=== PATIENT | female | born 1940 | race Caucasian/White ===

== ENCOUNTER 2024-07-21 14:55 | Emergency (ER) | payer MEDICARE, SELFPAY ==
--- NOTE | ~2024-07-21 | CT_ITS ---
CLINICAL INDICATION: Umbilical hernia with nausea and COMPARISON: 01/19/2015X TECHNIQUE: Multiple contiguous axial images of the abdomen and pelvis were performed following the ad ministration of with 100 mL Omnipaque-350 intravenous contrast The dose-length product (DLP) was 1462.31 mGy-cm. Automated exposure control and iterative reconstruction technique were employed. FINDINGS/OBSERVATIONS: Visualized lower thorax: The bilateral lung bases are clear. The heart is of normal size, without pericardial effusion. Small hiatal hernia is present. Liver: The liver demonstrates homogeneous enhancement and is not enlarged measuring 15 cm in longitudinal di mension. Gallbladder and biliary system: The gallbladder is only minimally distended and contains a single stone, and is otherwise unremarkabl e. Pancreas: The pancreas enhances homogeneously without ductal dilatation. Spleen: The spleen enhances homogeneously and is not enlarged measuring 10 cm in longitudinal dimension. Kidneys: Innumerable rounded foci of fluid attenuation identified within the bilateral kidneys, incre ased from 2015 examination. The remainder of the bilateral kidneys otherwise enhance symmetrically without hydronephrosis or lincoln l calculi. Adrenal glands: Unremarkable. Gastrointestinal tract: Colonic diverticulosis without surrounding inflammatory change. Fecal stasis within the colon. Appendix: The appendix is not definitively visualized. However, no pericecal inflammatory change is identified suggest the presence of acute appendicitis. Vasculature: Unremarkable. Lymph nodes: No pathologically enlarged or morphologically suspicious lymph nodes within the retroperitoneum or at the root of the mesentery. Pelvic structures: The bladder is only minimally distended, and otherwise unremarkable. The uterus is anteverted and anteflexed. Body wall and musculoskeletal: A fat, omental, and fluid containing umbilical hernia is identified, extending caudally without signi ficant enlargement since 2015 examination. Trace surrounding inflammatory change is identified. The hernia sac measures 6.3 x 8.1 x 9.5 cm (compared with 5.7 x 6.7 x 7.8 cm on the 2015 examination) . Significant degenerative disease within the lower thoracic and lumbar spines with osteophyte formatio n, disc space narrowing, endplate changes and vacuum phenomena. IMPRESSION: Cholelithiasis without CT evidence of cholecystitis. Colonic diverticulosis. Fat, omental and fluid containing umbilical hernia with interval enlargement of the hernia sac compar ed with previous examination performed in 2015. Reviewed, dictated and finalized at location A. IMPRESSION: Cholelithiasis without CT evidence of cholecystitis. Colonic diverticulosis. Fat, omental and fluid containing umbilical hernia with interval enlargement of the hernia sac compared with previous examination performed in 2014.
[2024-07-21 15:01] VITALS: BP 164/102; PULSE 88; RESP 16; TEMP 36.4; O2SAT 98
--- OUTSIDE RECORDS SUMMARY | 2024-07-21 16:30 | XMS_ITS | Clinical Summary ---
Author Organization [facility] Address [address] [place] [address] Phone Care Team Providers Care Legal Aid Name Role Phone Jamal Nagy DO Primary Care Provider [phone] Allergies Active Allergy Reactions Criticality Noted Date Comments Morphine Nausea and Vomiting, Other (See Comments) Low 06/21/2011 Opioids - Morphine Analogues Other (See Comments) Medications VENTOLIN HFA 90 mcg/actuation inhaler INL 2 PFS PO Q 4 TO 6 H PRN 0 12/29/2017 Active aspirin (ASPIRIN LOW DOSE) 81 mg Tablet, Delayed Release (E.C.) 81 mg. 02/22/2015 Acti ve dexamethasone (MAXIDEX) 0.1 % suspension 4 times daily. Active diphenhydrAMINE (BENADRYL) 25 mg capsule 25 mg. 08/03/2014 Active ibuprofen (MOTRIN) 200 mg tablet 200 mg. 02/22/2015 Active Irbesartan (AVAPRO) 75 mg tablet 75 mg. 08/03/2014 Active metoprolol succinate (TOPROL XL) 50 mg Extended Release 24 hour tablet TK 1/2 T PO BID 2 11/11/2017 Active metoprolol succinate (TOPROL XL) 25 mg Extended Release 24 hour tablet 0 10/08/2017 Active omega-3 acid ethyl esters (OMACOR,LOVAZA) 1 gram Capsule Take 1,000 mg by mouth. Active omeprazole (PriLOSEC) 20 mg Capsule, Delayed Release(E.C.) 20 mg. 02/22/2015 Activ e rosuvastatin (CRESTOR) 10 mg tablet Take 10 mg by mouth. Active triamterene-hydr oCHLOROthiazide (MAXZIDE 25) 37.5-25 mg tablet 2 10/07/2017 Active zolpidem (AMBIEN) 10 mg tablet Take 10 mg by mouth. 02/12/2017 Active Active Problems Problem Noted Date Diagnosed Date Umbilical hernia without obstruction and without gangrene 01/14/2018 Morbid obesity with body mass index of 40.0-49.9 01/14/2018 Family History Medical History Relation Name Comments Other Father Diabetes Mother Stroke Mother Depression Sister Thyroid Cancer Sister Relation Name Status Comments Father Mother Sister Alive Social History Tobacco Use Types Packs/Day Years Used Date Smoking Tobacco: Former Cigarettes Alcohol Use Standard Drinks/Week Comments Yes 0 (1 standard drink = 0.6 oz pur e alcohol) 1-2 or less a week Comments No Sex and Gender Information Value Date Recorded Sex Assigned at Not on file Legal Sex Female 4:36 PM CDT Gender Identity Not on file Sexual Orientation Not on file Last Filed Vital Signs Vital Sign Reading Time Taken Comments Blood Pressure 137/92 01/14/2018 11:22 AM CDT Pulse 80 01/14/2018 11:22 AM CDT Temperature - - Respiratory Rate - - Oxygen Saturation - - Inhaled Oxygen Concentration - - Weight 108.4 kg (239 lb) 01/14/2018 11:22 AM CDT Height 158.8 cm (5' 2.5 ) 01/14/2018 11:22 AM CD T Body Mass Index 43.02 01/14/2018 11:22 AM CDT Plan of Treatment Health Maintenance Due Date Last Done Comments DTAP/TDAP/TD VACCINES (1 - Tdap) 02/09/1959 PNEUMOCOCCAL VACCINE 50+ YEARS (1 of 2 - PCV) 02/09/19 59 ZOSTER VACCINE (1 of 2) 02/09/1990 OSTEOPOROSIS SCREENING 02/09/2005 RSV VACCINE (60+ or ) (1 - 1-dose 75+ series) 02/09/2015 INFLUENZA VACCINE (#1) 2023 Insurance MEDICARE PART A AND B [employer] [facility] [address] Care Teams Legal Aid Relationship Specialty Start Date End Date Jamal Nagy DO [address] [facility] [address] [place] [address] PCP - General Internal Medicine 01/14/18
--- OUTSIDE RECORDS SUMMARY | 2024-07-21 16:30 | XMS_ITS | Clinical Summary ---
Author Organization [facility] Address [address] [place] [address] Care Team Providers Care Business Development Engineer Name Role Phone Beatrice Edouard MD Primary Care Provider Unavailable Source Comments [facility],non-owned Affiliates and Associated Physician Practices is amultiple site organization consisting of ambulatory clinics and hospital sitesin [place] and [place]. This disclosure is being madepursuant to the Care Everywhere program and may not contain all information available regarding this patient. Last updated 18.[facility] [employer] Allergies Active Allergy Reactions Criticality Noted Date Comments Morphine Nausea and/or Vomiting 06/21/2011 Medications * Be aware that medications may not be up to date on this document. Alwaysverify current medications with the patient. Medication Sig Dispensed Refills Start Date End Date Status rosuvastatin (CRESTOR) 10 MG tablet Take 10 mg by mouth once daily. Active dexamethasone (MAXIDEX) 0.1 % ophthalmic suspension 4 times daily. Active fish oil/omega-3 fatty acids (FISH OIL) 1000 MG capsule Take 1,000 mg by mouth 3 times daily with meals. Active aspirin EC (ECOTRIN) 81 MG tablet Take 81 mg by mouth once daily. Active Social History Tobacco Use Types Packs/Day Years Used Date Smoking Tobacco: Never Assessed Sex and Gender Information Value Date Recorded Sex Assigned at Not on file Gender Identity Not on file Sexual Orientation Not on file Last Filed Vital Signs Vital Sign Reading Time Taken Comments Blood Pressure 120/80 12/05/2016 3:37 PM CDT Pulse - - Temperature - - Respiratory Rate - - Oxygen Saturation - - Inhaled Oxygen Concentration - - Weight 108.8 kg (239 lb 12.8 oz) 2015 11:19 AM CDT Height 160 cm (5' 3 ) 12/05/2016 3:37 PM CDT Body Mass Index 42.48 01/18/2016 11:19 AM CDT Plan of Treatment Health Maintenance Due Date Last Done Comments BONE DENSITY TESTING 1940 MEDICARE AWV 12 MONTHS 1940 DTAP/TDAP/TD VACCINES (1 - Tdap) 02/09/1959 PNEUMOCOCCAL VACCINE 50+ (1 of 1 - PCV) 02/09/1990 ZOSTER VACCINE (1 of 2) 02/09/1990 Respiratory Syncytial Virus (RSV) Vaccine Pt: or over 60 yrs (1 - 1-dose 75+ series) 02/09/2015 COVID-19 VACCINE ( - 2023-2 5 season) 2024 INFLUENZA VACCINE (#1) 2024 DEPRESSION SCREENING 05/05/2024 HEPATITIS B VACCINE Aged Out No longe r eligible based on patient's age to complete this topic HIB VACCINE Aged Out No longer eligi ble based on patient's age to complete this topic HPV VACCINE Aged Out No longer eligi ble based on patient's age to complete this topic MENINGOCOCCAL (Group B) VACC INE SHARED DECISION-MAKING Aged Out No longer eligibl e based on patient's age to complete this topic MENINGOCOCCAL GROUPS A/C/Y/W VACCINE Aged Out No longer eligible b ased on patient's age to complete this topic Care Teams Business Development Engineer Relationship Specialty Start Date End Date Beatrice Edouard MD PCP - General 07/04/11
--- OUTSIDE RECORDS SUMMARY | 2024-07-21 16:30 | XMS_ITS | Clinical Summary ---
Author Organization [facility] Address [address] [place] [address] Care Team Providers Care Records Manager Name Role Phone Jamal Nagy MD Primary Care Provider [phone] Allergies Active Allergy Reactions Criticality Noted Date Comments Morphine Nausea And Vomiting, Nausea only,Nausea & Vomiting Low 06/21/2011 Opioids - Morphine Analogues Medications diphenhydrAMINE (BENADRYL) 25 mg capsule take 1 Capsule by oral route every bedtime as needed 0 0 08/03/2014 Active ibuprofen (ADVIL,MOTRIN) 200 mg tablet take 1 Tablet by oral route every morning as needed 0 0 02/22/2015 Active omeprazole (PriLOSEC) 20 mg capsule take 1 capsule by oral route every day before a meal 0 0 02/22/2015 Active aspirin (ASPIRIN LOW DOSE) 81 mg tablet take 2 tablet by oral route every day 0 0 02/22/2015 Active zolpidem (AMBIEN) 10 mg tabletIndicatio ns:Sleep-Onset Insomnia Take 0.5 tablets (5 mg total) by mouth nightly as needed 02/12/2017 Active irbesartan (AVAPRO) 75 mg tablet Take 1 tablet (75 mg total) by mouth nightly Active multivitamin capsule Take 1 capsule by mouth daily Active triamterene-hyd roCHLOROthiazid e 37.5-25 mg per tablet TAKE 1/2 TABLET BY MOUTH DAILY 45 tablet 1 11/09/2019 Active vit A/vit C/vit E/zinc/copper (ICAPS AREDS ORAL) Take by mouth Active rosuvastatin (CRESTOR) 20 mg tablet Take 1 tablet (20 mg total) by mouth daily 90 tablet 2 10/24/2023 Active Active Problems Problem Noted Date Diagnosed Date Erythema of breast 12/19/2016 Chronic coronary artery disease 07/01/2014 Medical History Medical History Date Comments Hx Other Medical obesity Hx Other Medical HLP Hypertension Hypertension Hx Other Medical bilateral knee replacement surgery Hx Other Medical rectal repair s urgery after childbirth Hx Other Medical ? Bladder surge ry Family History Medical History Relation Name Comments Hypertension Father Hypertension; Transient ischemic attack Father Tr ansient ischemic attack; Diabetes type II Mother Diabetes me llitus type 2; Stroke Mother Stroke; Cardiomyopathy Sister Cardiomyopath y; Relation Name Status Comments Father Mother Sister Social History Tobacco Use Types Packs/Day Years Used Date Smoking Tobacco: Former Smokeless Tobacco: Never Tobacco Cessation:Counseling Given: Not Answered Alcohol Use Standard Drinks/Week Comments Yes 0 (1 standard drink = 0.6 oz pur e alcohol) Personal Safety Answer Date Recorded Getting School Help Needed Not on file 06/15 Comments Unknown Sex and Gender Information Value Date Recorded Sex Assigned at Not on file 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 Gender Identity Not on file Sexual Orientation Not on file Obstetrics History Last Filed Vital Signs Vital Sign Reading Time Taken Comments Blood Pressure 120/62 01/21/2024 10:08 AM CDT Pulse 70 01/21/2024 10:08 AM CDT Temperature - - Respiratory Rate - - Oxygen Saturation 97% 01/21/2024 10:08 AM CDT Inhaled Oxygen Concentration - - Weight 103.9 kg (229 lb) 01/21/2024 10:08 AM CDT Height 160 cm (5' 3 ) 01/21/2024 10:08 AM CDT Body Mass Index 40.57 01/21/2024 10:08 AM CDT Plan of Treatment Health Maintenance Due Date Last Done Comments Depression Screening 1940 Fall Risk Assessment 1940 Osteoporosis Screening-Bone Density Scan 1940 Hepatitis B Screening 02/09/1958 Zoster Vaccine (1 of 2) 02/09/1990 Well Visit 65+ 02/09/2005 Pneumococcal vaccine 65+ (2 of 2 - PPSV23) 03/02/2019 01/05/2019 Influenza Vaccine (#1) 2024 9, 03/10/2018, 03/05/2016, Additional history exists DTaP/Tdap/Td Vaccine (2 - Td or Tdap) 06/01/2025 06/01/2015 Insurance MEDICARE [facility] MEDICARE [facility] MEDICARE [employer] SENIOR SUPPLEMENT Care Teams Records Manager Relationship Specialty Start Date End Date Jamal Nagy MD [address] [facility] [address] [place] [address] PCP - General Internal Medicine 06/10/18
--- OUTSIDE RECORDS SUMMARY | 2024-07-21 16:30 | XMS_ITS | Referral Summary ---
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
--- NOTE | 2024-07-21 17:57 | ED.GENADULT ---
HPI - General Adult General Chief complaint: Recheck/Abnormal Lab/Rx Stated complaint: strangulated hernia Time Seen by Provider: 07/21/24 17:57 Focused HPI: Patient is an 84-year-old female who presents the ED with report of abdominal pain. Patient reports she has had an umbilical hernia for several years. Has previously seen Dr. Barrientos for this. Around 1 pm began having increased pain. States it felt increased in size. Was unable to reduce it back in. Prompted here for further evaluation. Reports nausea, denies vomiting, diarrhea, constipation, fevers. Has not had anything for pain today. GENERAL: Well-appearing, well-nourished, and in no acute distress. HEAD: Normocephalic, atraumatic. CHEST: Clear to auscultation. ?No respiratory distress. HEART: Regular rate and rhythm.? ABD: Umbilical hernia somewhat firm, focal tenderness, difficult to reduce. Diffuse surrounding tenderness. Slight ecchymotic appearance of periumbilical skin. NEURO: ?Alert and oriented x3. Patient screened in triage and initial orders placed.? ?Additional care and disposition to be based upon?diagnostic testing and treatment. Source: patient Mode of arrival: ambulatory Limitations: no limitations Related Data Home Medications ?Medication ?Instructions ?Recorded ?Confirmed ?Last Taken ?Type diphenhydramine HCl 25 mg capsule 25 mg PO Q4-6H PRN 03/13/19 04/08/23 Unknown History (Benadryl) ibuprofen 200 mg tablet (Advil) 200 mg PO Q6H PRN 03/13/19 04/13/24 Unknown History acetaminophen 325 mg tablet 325 mg PO Q6H PRN 04/06/19 04/13/24 Unknown History (Tylenol) aspirin 162.5 mg capsule,extended 162.5 mg PO DAILY 04/06/19 04/13/24 Unknown History release 24 hr naproxen sodium 220 mg capsule 220 mg PO BID PRN 04/06/19 04/13/24 Unknown History (Aleve) rosuvastatin 10 mg tablet (Crestor) 20 mg PO DAILY 03/13/21 04/13/24 Unknown History amlodipine 10 mg tablet 10 mg PO DAILY 04/07/23 04/13/24 Unknown History mecobalamin (vitamin B12) 1,000 1,000 mcg PO DAILY 04/07/23 04/13/24 Unknown History mcg chewable tablet vitamin A-vit C-vit E-zinc-Cu tablet PO 04/07/23 04/13/24 Unknown History tablet Allergies Allergy/AdvReac Type Severity Reaction Status Date / Time morphine Allergy Unknown nausea & Verified 04/13/24 09:23 vomiting poison pop extract Allergy Unknown unknown Verified 04/13/24 09:23 JALEPENO PEPPERS Allergy Intermediate INCREASED Uncoded 04/13/24 09:23 HEART RATE PMFSH Past Medical History Medical History Other fatigue Ventral hernia without obstruction or gangrene Umbilical hernia without obstruction or gangrene Pure hypercholesterolemia, unspecified Pure hypercholesterolemia Presence of prosthetic heart valve Hyperglycemia Hammer toe of right foot Essential (primary) hypertension Elevated hematocrit Allergic rhinitis, unspecified History of gastric ulcer History of blood transfusion Hyperlipidemia Heart disease HTN (hypertension) Surgical History Surgical History Hx of removal of cyst back H/O aortic valve replacement History of total left knee replacement History of total right knee replacement History of rectal surgery History of bladder surgery Family History Family History Grandparent Cerebrovascular accident Family history of malignant neoplasm Family history of aortic aneurysm, Onset Age: 63 Mother Patient's mother is , Onset Age: 82 Family history of type 2 diabetes mellitus Hypertension Cerebrovascular accident Father Pneumonia Sibling Family history of malignant neoplasm of thyroid Other Family history of alcoholism Family history of pancreatic disease Family history of renal failure Social History Social History (Updated 04/13/24 @ 10:13 by TRISH Fitzgerald) Smoking packs per day: 1 Smoking cigarettes per day: 20.0 Years smoked: 20 Smoking pack-years: 20.00 Smoking status: Former smoker Tobacco type: cigarettes Second hand tobacco smoke exposure: No Smoking end date: 05/05/80 Alcohol intake: current Alcohol use details: rare Substance use: never Substance use type: does not use Do You Feel Safe in your Home?: Yes Lack of Transportation: No Lack of Food: Never True Current Housing: I Have Housing Concerned About Future Housing: No Difficulty Paying Gas/Electric Bills: No Difficulty Paying for Meds: No Currently Unemployed: No Education: Bachelor's Degree Difficulty w/ Childcare or Family Care: No Living arrangements: alone Occupation/Education: retired 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 Patient left facility after initial MSE without further work up or evaluation. Vital Signs Vital Signs: Vital Signs Temperature 97.6 F 07/21/24 15:01 Pulse Rate 88 07/21/24 15:01 Respiratory Rate 16 07/21/24 15:01 Blood Pressure 164/102 H 07/21/24 15:01 Pulse Oximetry 98 07/21/24 15:01 Temperature 97.1 F L 07/21/24 18:48 Pulse Rate 74 07/21/24 18:48 Respiratory Rate 16 07/21/24 18:48 Blood Pressure 179/106 H 07/21/24 18:48 Pulse Oximetry 98 07/21/24 18:48 Lab Data 07/21/24 18:38 07/21/24 18:38 Labs: Lab Results 07/21/24 Range/Units 18:38 WBC 9.9 (4.5-10.0) K/mm3 RBC 5.05 (4.2-5.4) M/mm3 Hgb 13.1 (12.0-15.0) g/dL Hct 40.7 (37.0-47.0) % MCV 80.6 (80-100) fl MCH 25.9 L (26-34) pg MCHC 32.2 (32-36) g/dl RDW 17.1 H (11.5-14.5) % Plt Count 215 (150-375) k/mm3 MPV 10.2 (7.4-10.4) fl Immature Gran % (Auto) 0.4 (0-0.5) % Neut % (Auto) 78.6 H (45.5-73.1) % Lymph % (Auto) 12.0 L (18.3-44.2) % Obion % (Auto) 6.9 (2.6-8.5) % Eos % (Auto) 1.4 (0-4.4) % Baso % (Auto) 0.7 (0.2-1.2) % Lymph # (Auto) 1.19 (0.9-3.2) K/mm3 Obion # (Auto) 0.7 H (0.1-0.6) K/mm3 Eos # (Auto) 0.1 (0-0.3) K/mm3 Baso # (Auto) 0.1 (0.0-0.1) K/mm3 Abs Immat Gran (auto) 0.04 H (0.00-0.031) K/mm3 Absolute Neuts (auto) 7.8 H (1.3-6.7) K/mm3 Absolute Nucleated RBC 0.000 (0.0-0.012) K/mm3 Nucleated RBC % 0.0 (0.0-0.2) % Sodium 136 L (137-145) mmol/L Potassium 4.1 (3.4-5.0) mmol/L Chloride 101 (98-107) mmol/L Carbon Dioxide 26 (22-30) mmol/L Anion Gap 9 (4-12) mmol/L BUN 17 (7-17) mg/dL Creatinine 0.74 (0.7-1.0) mg/dL Estim Creat Clear Calc 57 ml/min Estimated GFR > 60 (59 - ) Glucose 115 H (65-110) mg/dL Lactic Acid 1.1 (0.7-2.0) mmol/L Calcium 10.3 H (8.4-10.2) mg/dL Total Bilirubin 0.8 (0.2-1.3) mg/dL AST 29 (14-36) U/L ALT 19 (6-35) U/L Alkaline Phosphatase 89 (38-126) U/L Total Protein 8.0 (6.3-8.2) g/dL Albumin 4.4 (3.5-5.1) g/dL Discharge Plan Discharge Clinical Impression: Umbilical hernia Qualifiers: Obstruction and gangrene presence: without obstruction or gangrene Qualified Code(s): K42.9 - Umbilical hernia without obstruction or gangrene Patient Disposition: Elopement After Seen by Prov Patient Language: [place] Prescriptions: No Action aspirin 162.5 mg capsule,extended release 24hr 162.5 mg PO DAILY acetaminophen [Tylenol] 325 mg tablet 325 mg PO Q6H PRN naproxen sodium [Aleve] 220 mg capsule 220 mg PO BID PRN rosuvastatin [Crestor] 10 mg tablet 20 mg PO DAILY amlodipine 10 mg tablet 10 mg PO DAILY vitamin A-vit C-vit E-zinc-Cu Tablet PO mecobalamin (vitamin B12) 1,000 mcg tablet,chewable 1,000 mcg PO DAILY diphenhydramine HCl [Benadryl] 25 mg capsule 25 mg PO Q4-6H PRN ibuprofen [Advil] 200 mg tablet 200 mg PO Q6H PRN irbesartan 150 mg tablet 75 mg PO DAILY Qty: 45 3RF triamterene-hydrochlorothiazid 37.5-25 mg tablet 1 tablet PO QAM Qty: 90 1RF zolpidem 10 mg tablet 5 mg PO .hs PRN (Reason: sleep) Qty: 30 0RF Follow-up/Referrals: Kraig Kuhn DO [Primary Care Provider] -
[2024-07-21 18:48] VITALS: BP 179/106; PULSE 74; RESP 16; TEMP 36.2; O2SAT 98
[2024-07-21 18:53] LABS: Basophils Absolute Auto 0.1 K/mm3 (0.0-0.1); Basophils Percent Auto 0.7 % (0.2-1.2); Eosinophils Absolute Auto 0.1 K/mm3 (0-0.3); Eosinophils Percent Auto 1.4 % (0-4.4); Hematocrit 40.7 % (37.0-47.0); Hemoglobin 13.1 g/dL (12.0-15.0); Immature Granulocyte Absolute 0.04 K/mm3 (0.00-0.031); Immature Granulocyte Percent A 0.4 % (0-0.5); Lymphocytes Absolute Auto 1.19 K/mm3 (0.9-3.2); Mean Corpuscular HGB Conc 32.2 g/dl (32-36); Mean Corpuscular Hemoglobin 25.9 pg (26-34); Mean Corpuscular Volume 80.6 fl (80-100); Mean Platelet Volume 10.2 fl (7.4-10.4); Monocytes Absolute Auto 0.7 K/mm3 (0.1-0.6); Monocytes Percent Auto 6.9 % (2.6-8.5); Neutrophils Absolute Auto 7.8 K/mm3 (1.3-6.7); Neutrophils Percent Auto 78.6 % (45.5-73.1); Platelet Count Result 215 k/mm3 (150-375); Red Blood Count 5.05 M/mm3 (4.2-5.4); Red Cell Distribution Width 17.1 % (11.5-14.5); White Blood Count 9.9 K/mm3 (4.5-10.0)
[2024-07-21 19:03] LABS: Alanine Aminotransferase 19 U/L (6-35); Albumin Level 4.4 g/dL (3.5-5.1); Alkaline Phosphatase 89 U/L (38-126); Anion Gap 9 mmol/L (4-12); Aspartate Amino Transferase 29 U/L (14-36); Bilirubin,Total 0.8 mg/dL (0.2-1.3); Blood Urea Nitrogen 17 mg/dL (7-17); Calcium 10.3 mg/dL (8.4-10.2); Carbon Dioxide 26 mmol/L (22-30); Chloride 101 mmol/L (98-107); Estimated CRCL calculation 57 ml/min; Estimated Glomerular Filt Rate > 60; Glucose 115 mg/dL (65-110); Potassium 4.1 mmol/L (3.4-5.0); Sodium 136 mmol/L (137-145)
[2024-07-21 19:04] LABS: Lactic Acid Reflex 1.1 mmol/L (0.7-2.0)
--- NOTE | 2024-07-21 21:38 | PC.NURSE ---
Pt ambulatory to triage desk. Pt states since its been 7 hours since I have been waiting and I am feeling better I am going to go home . travel consultant explained triage process and apologized for the long wait. Rn continued to advise that we would want her to stay and be checked out but pt states she does not want to wait any longer. Pt IV was taken out by winch derrick operator. Pt left without being seen by provider.
--- NOTE | 2024-07-21 21:41 | PC.NURSE ---
Pt was given portal pamphlet to look up her work up results by building construction engineer prior to leaving before being seen.
--- OUTSIDE RECORDS SUMMARY | 2024-07-22 01:37 | XMS_ITS | Clinical Summary ---
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
--- OUTSIDE RECORDS SUMMARY | 2024-07-22 01:37 | XMS_ITS | Clinical Summary ---
Author Organization [facility] Address [address] [place] [address] Care Team Providers Care Hvac Service Technician Name Role Phone Beatrice Edouard MD Primary Care Provider Unavailable Source Comments [facility],non-owned Affiliates and Associated Physician Practices is amultiple site organization consisting of ambulatory clinics and hospital sitesin [place], [place], [place] and [place]. This disclosure is being madepursuant to the Care Everywhere program and may not contain all information available regarding this patient. Last updated 18.[facility] Eve Allergies Active Allergy Reactions Criticality Noted Date [...] age to complete this topic Care Teams Hvac Service Technician Relationship Specialty Start Date End Date Beatrice Edouard MD PCP - General 07/04/11
--- OUTSIDE RECORDS SUMMARY | 2024-07-22 01:37 | XMS_ITS | Clinical Summary ---
Author Organization [facility] Address [address] [place] [address] Phone Care Team Providers Care Extractions Technician Name Role Phone Jamal Nagy DO Primary Care Provider [phone] Allergies Active Allergy Reactions Criticality Noted Date [...] Insurance MEDICARE PART A AND B [employer] [facility] [place] [address] Care Teams Extractions Technician Relationship Specialty Start Date End Date Jamal Nagy DO [address] [facility] [address] [place] [address] PCP - General Internal Medicine 01/14/18
--- OUTSIDE RECORDS SUMMARY | 2024-07-22 01:37 | XMS_ITS | Referral Summary ---
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 MEDICARE [facility] MEDICARE [employer] S[employer] Care Teams Buffet Attendant Relationship Specialty Start Date End Date Jamal Nagy MD [address] [facility] [address] [place] [address] PCP - General Internal Medicine 06/10/18
== END 2024-07-21 21:41 | disposition left against medical advice (07) ==
LOC: ANHED 07-22 01:35
PROVIDERS: Emergency Provider Physician Assistant; PCP Internal Medicine
DX: K42.9 Umbilical hernia without obstruction or gangrene (principal); E78.5 Hyperlipidemia, unspecified; Z95.2 Presence of prosthetic heart valve; I11.0 Hypertensive heart disease with heart failure; I50.9 Heart failure, unspecified
CPT/HCPCS: 36415; 74177; 80053; 83605; 85025; 99284; Q9967